=== PATIENT | male | born 1960 | race Caucasian/White ===

== ENCOUNTER 2016-02-28 04:41 | Emergency (ER) | payer BC ==
[~2016-02-28] VITALS: Ht 170.2 cm; Wt 80.1 kg
[2016-02-28] MEDS ORDERED: NORCO 5/3251 TABLET PO ×2 (06:18→06:19)
[2016-02-28 06:27] VITALS: BP 122/88
== END 2016-02-28 06:48 | disposition home or self-care (01) ==
LOC: EME 04:41
DX: S06.0X9A Concussion with loss of consciousness of unspecified duration, initial encounter (principal); S00.93XA Contusion of unspecified part of head, initial encounter; V86.59XA Driver of other special all-terrain or other off-road motor vehicle injured in nontraffic accident, initial encounter
CPT/HCPCS: 70450; 99281; 99283

== ENCOUNTER → 2017-05-03 | Outpatient (CLI) | payer BC ==
[~2017-05-03] MED LIST: NORCO 5/3251 TABLET PO
== END | disposition home or self-care (01) ==
LOC: NUC 08:30
DX: R10.11 Right upper quadrant pain (principal); R10.13 Epigastric pain
CPT/HCPCS: 78227; A9537; J2805